=== PATIENT | female | born 1960 | race Caucasian/White ===

== ENCOUNTER → 2018-08-14 | Outpatient (CLI) | payer OTHER ==
[~2018-08-14] MED LIST: CARB-134 PO; GLUC-198 PO
== END ==
LOC: LAB 09:35
PROVIDERS: ATTEND Emergency Medicine
DX: R79.0 Abnormal level of blood mineral (principal)
CPT/HCPCS: 36415; 82728; 83540; 83550

== ENCOUNTER → 2018-08-21 | Outpatient (CLI) | payer OTHER | LOC: LAB 09:15 | PROVIDERS: ATTEND Emergency Medicine | DX: R79.0 Abnormal level of blood mineral (principal) | CPT/HCPCS: 36415; 81256 ==

== ENCOUNTER → 2018-09-12 | Outpatient (CLI) | payer OTHER ==
--- NOTE | 2018-09-13 08:12 | RADIOLOGY IMAGING REPORT ---
FACILITY: [facility] PATIENT NAME: LUMA ABREU : [id number] MR: [id number] V: [id number] EXAM DATE: [id number] ORDERING PHYSICIAN: CHRISTY MEJIA TECHNOLOGIST: Sindy Flowers PROCEDURE:BILATERAL DIGITAL SCREENING MAMMOGRAM WITH CAD ASSISTED INTERPRETATION & 3D TOMOSYNTHESIS COMPARISON:Prior mammograms 10/26/09, 08/16/07. INDICATIONS:SCREENING FINDINGS: Scattered fibroglandular densities are seen throughout the breasts. The overall breast density has decreased when compared to the prior mammograms although has otherwise remained stable allowing for difference in mammographic technique & patient positioning. DIAGNOSTIC CATEGORY 1--NEGATIVE. RECOMMENDATIONS: ROUTINE MAMMOGRAM AND CLINICAL EVALUATION. IMPRESSION: BIRADS 1: Negative. No significant abnormality is seen. Dictated by: Brittani Magaña M.D. on 09/12/2018 at 16:24 Transcribed by: SUN on 09/13/2018 at 8:04 Approved by: Brittani Magaña M.D. on 09/13/2018 at 8:11 [facility]
== END ==
LOC: MAMO 02:50
PROVIDERS: ATTEND Emergency Medicine
DX: Z12.31 Encounter for screening mammogram for malignant neoplasm of breast (principal)
CPT/HCPCS: 77063; 77067

== ENCOUNTER 2018-10-10 07:05 | Outpatient (RCR) | payer OTHER ==
[2018-10-10 15:38] VITALS: BP 116/75
--- NOTE | 2018-10-10 20:33 | ONCOLOGY CONSULTATION ---
EVENT DATE: October 10, 2018 REFERRING PROVIDER Denise Peres MD REASON FOR CONSULTATION Concern for elevated iron levels. HISTORY OF PRESENT ILLNESS Flower is a delightful, 58-year-old female with a history of hyperlipidemia and trigeminal neuralgia. She reports that in general she feels pretty well. She has been taking carbamazepine for her trigeminal neuralgia, which does seem to be effective. She had recently tried to reduce the dose, but the neuralgia symptoms worsened. She reports no fevers, chills, or sweats. Her energy level tends to be pretty good. She reports no abdominal pain, nausea, or recent changes in her bowel habits. She denies urinary symptoms. She has had no shortness of breath, chest pain, or cough. She denies blood loss symptoms. She had recently undergone routine labs to include iron studies. She is here at the request of Dr. Peres to discuss the results, as well as results of hereditary hemochromatosis gene testing. REVIEW OF SYSTEMS Otherwise negative, and all systems were reviewed. PAST MEDICAL HISTORY 1. Trigeminal neuralgia. 2. Hyperlipidemia. CURRENT MEDICATIONS 1. Carbamazepine 200 mg p.o. b.i.d. 2. Glucosamine/chondroitin. ALLERGIES No known drug allergies. SOCIAL HISTORY Patient is a never smoker. She occasionally drinks alcohol. There is no history of illicit drug use. FAMILY HISTORY There is a history of breast cancer in her maternal grandmother, but no known iron disorders or complications of such. VITAL SIGNS Temperature is 97, blood pressure 116/75, heart rate is 56, respirations 16, oxygen saturation is 98% on room air. Weight is 71.3 kg. PHYSICAL EXAMINATION GENERAL: Patient is alert and oriented times three, in no apparent distress, sitting in the exam room chair. She appears healthy. HEENT: Anicteric sclerae. NEUROLOGIC: Grossly nonfocal, and her gait is normal. SKIN: No concerning rash or lesion. There is no jaundice. EXTREMITIES: No edema, clubbing, or cyanosis. There is no erythema or tenderness to palpation. LABORATORY Studies from August 22, 2018, reveal a white blood cell count of 4600 with normal differential, hemoglobin 14.7, hematocrit 43.6, platelet count 330,000. Pertinent chemistries reveal a serum creatinine of 0.76, normal total bilirubin, normal GGT, normal AST, normal ALT, and a normal alkaline phosphatase. HFE studies performed on August 21, 2018, reveal no evidence of the C282Y mutation, H63D mutation, or S65C mutation. IMAGING None today. ASSESSMENT AND PLAN Elevated serum percent transferrin saturation, normal ferritin. I had a good visit with Flower today. Symptomatically, she seems to be doing quite well. Her main issue continues to be trigeminal neuralgia, for which she takes carbamazepine. We spent time today discussing iron metabolism in detail. We discussed how iron studies can help determine whether iron overload is present and whether there is particular concern for clinically impactful iron overload. At this point, with a ferritin of less than 100, she does not have iron overload. I do recognize that her percent saturation is elevated, however. It is encouraging that she has had normal hereditary hemochromatosis studies, but I have not strongly recommended that she have additional studies for mutations that are much less common. She has no particularly pertinent family history, and her other laboratory studies are encouraging. She has no LFT abnormalities and no symptoms to suggest congestive heart failure. She has not had a problem with blood sugar control, and she does not have chronic joint complaints. The patient is quite concerned about medical expenses. As discussed, we could conceivably send for evaluation for additional mutations, but expense could be an issue. At this point with the clinical situation, I think this would be unnecessary. I do, however, think it would be reasonable for her to have basic labs checked on an annual basis, to include a CBC, CMP, serum ferritin, and iron panel. If her ferritin remains in this range, I would have very little concern, if any, moving forward for risk of clinical manifestations of iron overload. Patient had several additional questions for me today, and I believe I answered all of her questions to her satisfaction. I would be more than happy to see her again in the future if there are concerns as discussed. MTDD
[2018-11-26] MEDS ORDERED: CARB-134 PO (10:32)
== END 2019-01-02 12:17 | disposition home or self-care (01) ==
LOC: ONC 07:05
PROVIDERS: ATTEND Internal Medicine Medical Oncology
DX: R79.0 Abnormal level of blood mineral (principal)
CPT/HCPCS: 99202